=== PATIENT | female | born 1960 | race Asian ===

== ENCOUNTER 2020-12-28 16:13 | Emergency (ER) | payer OTHER, MEDICAID, SELFPAY ==
[2020-12-28 16:23] VITALS: BP 130/69; PULSE 68; RESP 16; TEMP 36.6; O2SAT 97; BMI 20.2
--- NOTE | 2020-12-28 16:51 | PC.NURSE ---
Tingling and pain to left hip last night (previous site of shingles from last episode) and right side of face. The hip subsided, now it is only the right side of her face and all over generalized body aches.
--- NOTE | 2020-12-28 17:05 | ED_ITS ---
HPI - Skin/Abscess/Foreign Bdy General Chief complaint: Skin/Abscess/Foreign Body Stated complaint: Shingles, symptoms since last night Time Seen by Provider: 12/28/20 16:35 History of Present Illness HPI narrative: Patient here with . 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 Complains right facial burning sensation and painful to touch. No rash. Patient states feels like shingles starting to flare up. Started this morning. When she awoke. No slurred speech facial droop. No limb weakness. Has generalized body aches and chills. She states this feels the same when she had shingles in her left flank/pelvis area. She has no complaints in this area at this time. Only in the right face. No eye pain. At this time no rash. She states she had the symptoms before the rash started on her left flank pelvis area in the past. No previous shingles vaccine. Denies any medical problems. Related Data Previous Rx's Medication Instructions Recorded methylprednisolone 4 mg tablets in See Rx Instructions .ROUTE 12/28/20 a dose pack (Medrol (Cristopher)) .COMPLEX #21 each valacyclovir 1 gram tablet 1,000 mg PO Q8H #21 tab 12/28/20 Allergies Allergy/AdvReac Type Severity Reaction Status Date / Time No Known Drug Allergies Allergy Verified 12/28/20 17:19 Review of Systems Review of Systems Narrative: GENERAL: Positivechills, fatigue, malaise, negative fever, sweats. HEENT: Denies sinus pain, ear pain, sore throat RESPIRATORY: Denies dyspnea, cough CARDIOVASCULAR: Denies chest pain, palpitations GASTROINTESTINAL: Denies nausea, vomiting, abdominal pain : Denies dysuria, frequency, hematuria MUSCULOSKELETAL: denies muscle or bony pain SKIN: Denies rash, skin lesions NEUROLOGIC: Denies weakness, negative slurred speech, negative headache, positive numbness/tingling ROS Unobtainable: All systems reviewed & are unremarkable except as noted in HPI and below Exam Narrative Exam Narrative: GENERAL: in no distress, not toxic not dyspneic HEAD: Normocephalic. EYES: Pupils equal round No scleral icterus. No pain with eye movement. PERRLA. No rash or vesicles or lesions on the eyelids or periorbital. No photophobia. Funduscopic used. No papilledema ENT: Mucous membranes moist. NECK: Trachea midline. NEURO: AOx4. Clear speech no facial droop light touch intact to bilateral face hands. 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 Negative pronator drift SKIN: Warm and dry, examination of the face. There are no no no no vesicles or lesions or rash on the face on the right or left side. Or on the neck. Or on the forehead. Or on the scalp. However skin is tender to touch on the right forehead and right cheek. None on the jaw. Nontender left face. PSYCH: Not anxious, is cooperative Initial Vital Signs Initial Vital Signs: Vital Signs Temperature 97.8 F 12/28/20 16:23 Pulse Rate 68 12/28/20 16:23 Respiratory Rate 16 12/28/20 16:23 Blood Pressure 130/69 12/28/20 16:23 Pulse Oximetry 97 12/28/20 16:23 Course Course Course Narrative: No new issues during course of stay. Orders Ordered: Discontinued Medications Prednisone (Prednisone 20 Mg Tablet) 60 mg PO NOW ONE Stop: 12/28/20 17:05 Last Admin: 12/28/20 17:13 Dose: 60 mg Documented by: ALIYA Valacyclovir HCl (Valacyclovir 500 Mg Tablet) 1,000 mg PO NOW ONE Stop: 12/28/20 17:05 Last Admin: 12/28/20 17:13 Dose: 1,000 mg Documented by: ALIYA Reevaluation(s) Reevaluation #1: Patient and agree with treatment plan. They have a family doctor to follow up with. They do understand treatment plan. Vital Signs Vital signs: Vital Signs - 8 hr 12/28/20 16:23 Temperature 97.8 F Pulse Rate 68 Respiratory Rate 16 Blood Pressure 130/69 Pulse Oximetry 97 MDM - Skin/Abscess/Foreign Bdy Differential Diagnosis Differential diagnosis: Likely herpes zoster, cellulitis, eczema and contact dermatitis MDM Narrative Medical decision making narrative: Appropriate for discharge home. Not toxic. Exam reassuring. No slit lamp or with labs indicated this time. Patient has no no eye complaints. No eye pain. No vision changes. At this time will treat clinically for early herpes zoster. There is no unilateral weakness or numbness otherwise. Likely not stroke or Palafox's palsy. patient states this feels exactly the same when she had shingles on her left lower abdomen / flank with shingles in the past. It started with burning numbness tingling sensation and then rash appeared in the past Discharge Plan Departure Patient Disposition: Home Clinical Impression: Herpes zoster Qualifiers: Herpes zoster complications: without complications Qualified Code(s): B02.9 - Zoster without complications Instructions: DI for Shingles Activity Restrictions/Additional Instructions: See your family doctor next week for re-evaluation. Do not have any contact with women or anyone under immune suppression medication. Continue steroid pack and valacyclovir tomorrow. Return if worse if any questions concerns. Return if any eye pain or vision changes. Prescriptions: New methylprednisolone [Medrol (Cristopher)] 4 mg tablets,dose pack See Rx Instructions .ROUTE .COMPLEX Qty: 21 RF: 0 valacyclovir 1 gram tablet 1,000 mg PO Q8H Qty: 21 RF: 0
[2020-12-28] MEDS: valACYclovir 500 MG TABLET 1000 MG PO (17:13)
[2020-12-28] MEDS: predniSONE 20 MG TABLET 60 MG PO (17:13)
== END 2020-12-28 17:23 | disposition home or self-care (01) ==
PROVIDERS: Emergency Provider Emergency Medicine
DX: B02.9 Zoster without complications (principal)
CPT/HCPCS: 99283